=== PATIENT | female | born 1980 | race Caucasian/White ===

== ENCOUNTER 2024-04-05 07:15 | Inpatient (IN) ==
[2024-04-05] MEDS: Lactated Ringers 1000 ml BAG 1,000 ML IV ONE ×2 (07:30→12:51)
[2024-04-05] MEDS: Ondansetron 4 mg VIAL 2 MG/ML 2 ml VIAL IV ONE (07:30)
[2024-04-05] MEDS: Acetaminophen IV 1 GM/100ML 1,000 MG/100 ML BAG IV ONE (07:45)
[2024-04-05 07:50] LABS: Urine Appearance Clear; Urine Bilirubin Negative (Negative); Urine Blood Negative (Negative); Urine Color Colorless; Urine Glucose Trace (Negative); Urine Ketones Negative (Negative); Urine Nitrite Negative (Negative); Urine Protein Negative (Negative); Urine Urobilinogen Negative (Negative)
[2024-04-05 07:50] LABS: ABS Basophils 0.1 10^3/uL (0.0-0.1); ABS Eosinophils 0.2 10^3/uL (0.0-0.5); ABS Lymphocytes 3.1 10^3/uL (1.0-4.8); ABS Monocytes 0.6 10^3/uL (0.0-0.9); ABS Neutrophils 8.4 10^3/uL (1.5-7.6); Eosinophil % 1.9 %; Hematocrit 43.4 % (35-45); Hemoglobin 15.3 g/dL (11.5-14.3); Lymphocyte % 25.2 %; Mean Corpuscular Hemoglobin 32.7 pg (27-33); Mean Corpuscular Hgb Conc 35.2 g/dL (31-36); Mean Corpuscular Volume 93.1 fL (80-97); Mean Platelet Volume 8.3 fL (7.5-11.2); Platelet Count 309 10^3/uL (150-450); Red Blood Count 4.67 10^6/uL (3.63-4.92); Red Cell Distribution Width 13.9 % (12-17); White Blood Count 12.4 10^3/uL (3.8-11.8)
[2024-04-05 08:20] LABS: INR 1.01 (0.85-1.14)
[2024-04-05 08:28] LABS: ALT 36 U/L (7-52); Albumin 4.6 g/dL (3.2-5.2); Alkaline Phosphatase 86 U/L (35-149); Anion Gap 10 mmol/L (2-16); Blood Urea Nitrogen 14 mg/dL (6-24); C Reactive Protein 5.26 mg/L (<8.01); CO2 Carbon Dioxide 23 mmol/L (22-32); Calcium 9.2 mg/dL (8.6-10.3); Chloride 102 mmol/L (101-111); Creatinine, Serum 0.82 mg/dL (0.51-0.95); Globulin 2.3 g/dL (2-4); Glucose 157 mg/dL (70-100); Lipase 259 U/L (11.0-82.0); Magnesium 1.9 mg/dL (1.9-2.7); Sodium 135 mmol/L (135-145); Total Bilirubin 0.4 mg/dL (0.2-1.0); Total Protein 6.9 g/dL (6.4-8.9); eGFR CKD-EPI 89.8 (>60)
[2024-04-05] MEDS: Morphine 4 MG/ML VIAL (1 ml) IV ONE (09:13)
[2024-04-05] MEDS: Iodixanol (CONTRAST) 320 MG/ML 100 ML SDV IV ONE (10:12)
[2024-04-05] MEDS: HYDROmorphone 1 MG/1 ML SYRINGE IV SLOW PU ONE (11:15)
[2024-04-05 11:31] LABS: Potassium, Whole Blood 3.7 mmol/L (3.4-4.5)
[2024-04-05] MEDS ORDERED: Senna TAB 8.6 mg TAB PO PRN (12:01)
[2024-04-05] MEDS ORDERED: Naloxone Nasal Spray 4 MG/0.1 ML NASAL.SPR INTRANASAL PRN (12:06)
[2024-04-05 12:32] LABS: Triglycerides 927 mg/dL
[2024-04-05] MEDS: Enoxaparin 40 MG/0.4 ML SYR SUBCUT SCH (14:21)
[2024-04-05] MEDS: Lactated Ringers 1000 ml BAG 1,000 ML IV SCH (14:32)
[2024-04-05] MEDS: Ondansetron 4 mg VIAL 2 MG/ML 2 ml VIAL IV PRN (14:33)
[2024-04-05] MEDS ORDERED: Dextrose 50% Syringe 50 ml 25 GM/50 ML SYRINGE IV PUSH PRN (14:55)
[2024-04-05] MEDS: HYDROmorphone 0.5 MG/0.5 ML SYRINGE IV SLOW PU PRN (15:49)
[2024-04-05] MEDS: Potassium Chlor 20 meq TAB.ER PO ONE (15:49)
[2024-04-05] MEDS: D5LR 1000 ml BAG 1,000 ML IV SCH ×2 (16:09→18:04)
[2024-04-05] MEDS: Insulin Infusion 100unit/100mL 100 UNIT/100 ML BAG IV SCH (17:55)
[2024-04-05 20:35] LABS: Calcium 8.3 mg/dL (8.6-10.3); Creatinine, Serum 0.62 mg/dL (0.51-0.95); Potassium 3.5 mmol/L (3.5-5.0); eGFR CKD-EPI 111.8 (>60)
[2024-04-05] MEDS: Metoclopramide 5 MG/ML VIAL (10 mg) IV PRN (23:25)
[2024-04-06 00:30] LABS: Calcium 8.7 mg/dL (8.6-10.3); Creatinine, Serum 0.68 mg/dL (0.51-0.95); Potassium 4.2 mmol/L (3.5-5.0); eGFR CKD-EPI 109.4 (>60)
[2024-04-06] MEDS: Metoclopramide 5 MG/ML VIAL (10 mg) ONE (01:07)
[2024-04-06 07:35] LABS: ABS Eosinophils 0.2 10^3/uL (0.0-0.5); ABS Lymphocytes 1.9 10^3/uL (1.0-4.8); ABS Monocytes 0.7 10^3/uL (0.0-0.9); ABS Neutrophils 7.8 10^3/uL (1.5-7.6); Eosinophil % 1.8 %; Hematocrit 39.5 % (35-45); Hemoglobin 13.7 g/dL (11.5-14.3); Lymphocyte % 18.1 %; Mean Corpuscular Hemoglobin 32.5 pg (27-33); Mean Corpuscular Hgb Conc 34.6 g/dL (31-36); Mean Corpuscular Volume 93.8 fL (80-97); Mean Platelet Volume 8.8 fL (7.5-11.2); Platelet Count 252 10^3/uL (150-450); Red Blood Count 4.21 10^6/uL (3.63-4.92); Red Cell Distribution Width 13.9 % (12-17); White Blood Count 10.6 10^3/uL (3.8-11.8)
[2024-04-06 07:42] LABS: Albumin 3.8 g/dL (3.2-5.2); Calcium 8.3 mg/dL (8.6-10.3); Creatinine, Serum 0.62 mg/dL (0.51-0.95); Globulin 1.9 g/dL (2-4); Magnesium 1.8 mg/dL (1.9-2.7); Total Bilirubin 0.5 mg/dL (0.2-1.0); Total Protein 5.7 g/dL (6.4-8.9); eGFR CKD-EPI 111.8 (>60)
[2024-04-06] MEDS: Lactated Ringers 1000 ml BAG 1,000 ML IV SCH (07:44)
[2024-04-06] MEDS ORDERED: Lactated Ringers 1000 ml BAG 1,000 ML IV SCH (08:00)
[2024-04-06] MEDS: Magnesium Sulfate 2 gm BAG 2 GM/50 ML BAG IVPB ONE (08:49)
[2024-04-06] MEDS: Ondansetron 4 mg VIAL 2 MG/ML 2 ml VIAL IV PRN (10:08)
[2024-04-06] MEDS ORDERED: Magnesium Sulfate IV 1GM/100ML 1 GM/100 ML BAG IV ONE (10:12)
[2024-04-06] MEDS: Gadoteridol (CONTRAST) 279.3 MG/ML 10 ML IV ONE (11:24)
[2024-04-06] MEDS: Gadoxetate (CONTRAST) 181.43 MG/ML 10 ML SDV IV ONE (11:26)
[2024-04-06 21:02] VITALS: BP 172/105
== END 2024-04-06 18:55 | disposition home or self-care (01) | DRG 282 ==
LOC: ED 07:15 → EDHOLD 07:15 → ICU 15:55
PROVIDERS: ADMIT Hospitalist; ATTEND Student in an Organized Health Care Education/Training Program